=== PATIENT | male | born 1990 | race Caucasian/White ===

== ENCOUNTER 2021-04-02 13:17 | Emergency (ER) | payer SELFPAY ==
[~2021-04-02] VITALS: Ht 170.2 cm; Wt 72.6 kg
[2021-04-02 13:17] VITALS: BP 130/72
--- NOTE | 2021-04-02 13:17 | NUR ---
Patient BIBA to bed 6 at this time.
--- NOTE | 2021-04-02 13:39 | NUR ---
30 Y/O M BIBA FOR ANXIETY THAT STARTED TODAY. PT STATES HE WAS DROPPING OFF HIS DAUGHTER AND STARTED FEELING HOT, CLAMMY, BREATHING HEAVY AND FAST, AND HAVING NUMBNESS IN FACE AND EXTREMITIES. DENIES PAIN NOW, JUST CRAMPING IN EXTREMITIES. DENIES N/V/D; SKIN IS PINK/WARM/DRY; AAOX4 WITH EVEN AND STEADY GAIT; LUNGS CLEAR BL; HR EVEN AND REGULAR; PT DENIES ANY FEVER, CP, SOB, OR COUGH AT THIS TIME; PATIENT STATES PAIN OF 0/10 AT THIS TIME; VSS; PATIENT POSITIONED FOR COMFORT; HOB ELEVATED; BEDRAILS UP X2; BED DOWN. ER MD MADE AWARE OF PT STATUS. PMH: DEPRESSION, ANXIETY NKA MED: NON COMPLIANT WITH ANXIETY MEDICATION
--- NOTE | 2021-04-02 14:02 | NUR ---
X-Ray at bedside.
[2021-04-02] MEDS ORDERED: ACETAMINOPHEN EXTRA STRENGTH 500 MG TAB PO ONE (14:40)
[2021-04-02] MEDS ORDERED: HYDR-637 PO (15:11)
[2021-04-02 15:20] VITALS: BP 130/72
--- NOTE | 2021-04-02 15:23 | NUR ---
Patient discharged with v/s stable. Written and verbal after care instructions given and explained. Patient alert, oriented and verbalized understanding of instructions. Ambulatory with steady gait. All questions addressed prior to discharge. ID band removed. Patient advised to follow up with PMD. Rx of HYDROXYZINE given. Patient educated on indication of medication including possible reaction and side effects. Opportunity to ask questions provided and answered.
== END 2021-04-02 15:23 | disposition home or self-care (01) ==
LOC: MED 13:17
DX: F41.0 Panic disorder [episodic paroxysmal anxiety] (principal); R07.89 Other chest pain; Z79.899 Other long term (current) drug therapy
CPT/HCPCS: 71045; 93005; 99283